=== PATIENT | male | born 2000 | race Caucasian/White ===

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

== ENCOUNTER 2025-01-19 20:13 | Emergency (ER) | payer SELFPAY ==
[~2025-01-19] VITALS: Ht 175.3 cm; Wt 72.6 kg
[2025-01-20 01:32] VITALS: BP 124/70; TEMP 98; O2SAT 98
== END 2025-01-19 23:30 | disposition home or self-care (01) ==
LOC: ER 20:25
DX: R07.89 Other chest pain (principal); R06.02 Shortness of breath; R42 Dizziness and giddiness